=== PATIENT | female | born 1975 | race Caucasian/White ===

== ENCOUNTER → 2023-02-22 | Outpatient (CLI) | payer OTHER ==
--- NOTE | 2023-02-22 14:15 | CT ---
EXAMINATION TYPE: CT facial bones w con CT DLP: 550.8 mGycm, Automated exposure control for dose reduction was used. DATE OF EXAM: 02/22/2023 2:01 PM COMPARISON: None. CLINICAL INDICATION:Female, 47 years old with history of R22.1; PHH, left sided facial lump TECHNIQUE: Multiple axial CT images were obtained of the facial bones after the uneventful administra tion of 100 cc of Isovue 300 intravenously. Coronal, axial and sagittal reformatted images were also provided in soft tissue and bone windows and submitted for interpretation. FINDINGS: There is no evidence of fracture, subluxation, dislocation, or significant soft tissue swelling. The orbital contents are unremarkable. The temporal-mandibular joints appear symmetric. There is a hetero genous enhancing lesion within the superficial left parotid gland at site of palpable abnormality marisol suring 1.4 x 1.1 cm ((series 4, image 42). The vascular structures appear patent. Mildly prominent 7 cm short axis right level 2 lymph node (series 4, image 27). Submandibular glands appear symmetric an d unremarkable. Right parotid gland appears unremarkable. The oropharynx, oral cavity, parapharyngeal and retropharyngeal spaces are clear and symmetric. The nasopharynx is unremarkable. Complete opacification of the left frontal sinus with mild mucosal thickening of the anterior left et hmoid sinus. The remaining visualized portion of the paranasal sinuses appear clear. IMPRESSION: 1. Indeterminate heterogenous enhancing 1.4 x 1.1 cm lesion within the superficial aspect of the lef t parotid gland at site of palpable abnormality. Etiologies include salivary gland tumor such as a Wh arton's tumor or pleomorphic adenoma or mucosal epidermal carcinoma or adenoid cystic carcinoma versu s other etiologies. Further evaluation with ultrasound is recommended with consideration for biopsy. 2. Nonspecific prominent right level 2 lymph node. This can be further evaluated with ultrasound.
== END | disposition home or self-care (01) ==
LOC: RADCTMAIN 13:33
PROVIDERS: ATTEND Family Medicine
DX: R22.1 Localized swelling, mass and lump, neck (principal)
CPT/HCPCS: 70487; Q9967

== ENCOUNTER 2023-03-31 09:48 | Emergency (ER) | payer OTHER ==
[2023-03-31 09:56] VITALS: TEMP 98
--- NOTE | 2023-03-31 10:25 | ED ---
General Adult HPI - General Chief complaint: Chest Pain Stated complaint: Chest Pain,R Middle Finger Blue Time Seen by Provider: 03/31/23 10:02 Source: patient Mode of arrival: ambulatory Limitations: no limitations - History of Present Illness Initial comments: Dictation was produced using [employer] dictation software. please excuse any grammatical, word or spelling errors. Chief Complaint: 47-year-old female with alleged history of carpal tunnel syndrome presents to the ER for though chest ache and third digit on the right hand color changes History of Present Illness: Patient is a 47-year-old female she has no significant past medical history. She is a regular tobacco user. She does report some history of cardiac disease. States that over the last couple days she is noted cyanotic distal right third digit. She has carpal tunnel as affecting that hand as well. States that last night her finger. Blue tip only. Denies any history of renal disease. This morning she woke up with substernal chest ache. Nonradiating not associated with diaphoresis. Patient denies any cardiac history. Patient does report having active symptoms. Denies any shortness of breath. No lower extremity symptoms. No history of blood clot The ROS documented in this emergency department record has been reviewed and confirmed by me. Those systems with pertinent positive or negative responses have been documented in the HPI. All other systems are other negative and/or noncontributory. - Related Data Allergies Allergy/AdvReac Type Severity Reaction Status Date / Time cefaclor [From [facility]] Allergy Rash/Hives Verified 03/31/23 09:56 Review of Systems ROS Statement: Those systems with pertinent positive or pertinent negative responses have been documented in the HPI. ROS Other: All systems not noted in ROS Statement are negative. Past Medical History Past Medical History: No Reported History History of Any Multi-Drug Resistant Organisms: None Reported Past Surgical History: Tubal Ligation Past Psychological History: No Psychological Hx Reported Smoking Status: Current every day smoker Past Alcohol Use History: None Reported Past Drug Use History: None Reported General Exam - General Exam Comments Initial Comments: PHYSICAL EXAM: General Impression: Alert and oriented x3, not in acute distress HEENT: Normocephalic atraumatic, extra-ocular movements intact, pupils equal and reactive to light bilaterally, mucous membranes moist. Cardiovascular: Heart regular rate and rhythm Chest: Able to complete full sentences, no retractions, no tachypnea Abdomen: abdomen soft, non-tender, non-distended, no organomegaly Musculoskeletal: Pulses present and equal in all extremities, no peripheral edema Motor: no focal deficits noted Neurological: CN II-XII grossly intact, no focal motor or sensory deficits noted Skin: Intact with no visualized rashes Psych: Normal affect and mood Limitations: no limitations Course Vital Signs 03/31/23 03/31/23 09:52 11:23 Temperature 98 F Pulse Rate 107 H 86 Respiratory 18 18 Rate Blood Pressure 114/67 116/73 O2 Sat by Pulse 98 97 Oximetry EKG Findings - EKG Comments: EKG Findings:: My EKG interpretation: Ventricular rate 91, sinus rhythm, IL interval 137, QRS 84, QTC 396. No IL prolongation, no QTC prolongation, no ST or T-wave changes noted. Overall, this EKG is unremarkable Medical Decision Making - Medical Decision Making Was pt. sent in by a medical professional or institution (, PA, [facility]ER, urgent care, hospital, or skilled nursing...) When possible be specific @ -No Did you speak to anyone other than the patient for history (EMS, parent, family, police, friend...)? What history was obtained from this source @ -No Did you review nursing and triage notes (agree or disagree)? Why? @ -I reviewed and agree with nursing and triage notes Were old charts reviewed (outside hosp., previous admission, EMS record, old EKG, old radiological studies, urgent care reports/EKG's, skilled nursing records)? Report findings @ -No old charts were reviewed Differential Diagnosis (chest pain, altered mental status, abdominal pain women, abdominal pain men, vaginal bleeding, musculoskeletal, weakness, fever, dyspnea, syncope, headache, dizziness, GI bleed, back pain, seizure, CVA, palpatations, mental health)? @ -Differential Chest Pain: Stable Angina, Unstable Angina, STEMI, NSTEMI Aortic Dissection, Pneumothorax, Musculoskeletal, Esophageal Spasm GERD, Cholecystitis, Pancreatitis, Zoster, this is not meant to be an all-inclusive list. EKG interpreted by me (3pts min.). @ -see above X-rays interpreted by me (1pt min.). @ -Chest x-ray shows no acute processes CT interpreted by me (1pt min.). @ -None done U/S interpreted by me (1pt. min.). @ -None done What testing was considered but not performed or refused? (CT, X-rays, U/S, labs)? Why? @ -None What meds were considered but not given or refused? Why? @ -None Did you discuss the management of the patient with other professionals (professionals i.e. , PA, BR[facility] PICKER, lab, RT, psych nurse, socially responsible investment adviser, upsetter helper, teacher, air intelligence officer, rifle case repairer)? Give summary @ -No Was smoking cessation discussed for >3mins.? @ -No Was critical care preformed (if so, how long)? @ -No Were there social determinants of health that impacted care today? How? (Homelessness, low income, unemployed, alcoholism, drug addiction, transportation, low edu. Level, literacy, decrease access to med. care, nursing home, rehab)? @ -No Was there de-escalation of care discussed even if they declined (Discuss DNR or withdrawal of care, Hospice)? DNR status @ -No What co-morbidities impacted this encounter? (DM, HTN, Smoking, COPD, CAD, Cancer, CVA, ARF, Chemo, Hep., AIDS, mental health diagnosis, sleep apnea, morbid obesity)? @ -None Was patient admitted / discharged? Hospital course, mention meds given and route, prescriptions, significant lab abnormalities, going to OR and other pertinent info. @ -47 Year-old female presents to the emergency Department with a tubal chest pain typical features. Vital signs are stable. EKG shows no signs of ischemia or infarction. Laboratory evaluation is unremarkable. Troponin is negative. Patient reevaluated at bedside found to be in stable medical condition. Recommend exacerbation was made that she should be admitted observation for suture troponins and cardiac monitoring. Patient refused and preferred be discharged. Patient given aspirin. Return precautions discussed. Undiagnosed new problem with uncertain prognosis? @ -No Drug Therapy requiring intensive monitoring for toxicity (Heparin, Nitro, Insulin, Cardizem)? @ -No Were any procedures done? @ -No Diagnosis/symptom? Acute, or Chronic, or Acute on Chronic? Uncomplicated (wi thout systemic symptoms) or Complicated (systemic symptoms)? @ -Atypical chest pain typical features Side effects of treatment? @ -No Exacerbation, Progression, or Severe Exacerbation? @ -No Poses a threat to life or bodily function? How? (Chest pain, [place], [place], pneumonia, PE, COPD, DKA, ARF, appy, cholecystitis, CVA, Diverticulitis, Homicidal, Suicidal, threat to staff... and all critical care pts) @ -yes - Lab Data Result diagrams: 03/31/23 10:23 03/31/23 10:23 Lab Results 03/31/23 03/31/23 03/31/23 Range/Units 10:23 10: 10:23 WBC 9.9 (3.8-10.6) k/uL RBC 4.54 (3.80-5.40) m/uL Hgb 14.5 (11.4-16.0) gm/dL Hct 42.8 (34.0-46.0) % MCV 94.2 (80.0-100.0) fL MCH 31.9 (25.0-35.0) pg MCHC 33.8 (31.0-37.0) g/dL RDW 11.7 (11.5-15.5) % Plt Count 224 (150-450) k/uL MPV 8.7 Neutrophils % 74 % Lymphocytes % 17 % Monocytes % 6 % Eosinophils % 2 % Basophils % 0 % Neutrophils # 7.3 (1.3-7.7) k/uL Lymphocytes # 1.7 (1.0-4.8) k/uL Monocytes # 0.5 (0-1.0) k/uL Eosinophils # 0.2 (0-0.7) k/uL Basophils # 0.0 (0-0.2) k/uL PT 10.2 (9.0-12.0) sec INR 1.0 (<1.2) APTT 26.3 (22.0-30.0) sec Sodium 137 (137-145) mmol/L Potassium 4.0 (3.5-5.1) mmol/L Chloride 104 (98-107) mmol/L Carbon Dioxide 24 (22-30) mmol/L Anion Gap 9 mmol/L BUN 11 (7-17) mg/dL Creatinine 0.76 (0.52-1.04) mg/dL Est GFR (CKD-EPI)AfAm >90 (>60 ml/min/1.73 sqM) Est GFR (CKD-EPI)NonAf >90 (>60 ml/min/1.73 sqM) Glucose 121 H (74-99) mg/dL Calcium 8.7 (8.4-10.2) mg/dL Magnesium 2.0 (1.6-2.3) mg/dL Total Bilirubin 0.4 (0.2-1.3) mg/dL AST 23 (14-36) U/L ALT 28 (4-34) U/L Alkaline Phosphatase 71 (38-126) U/L Troponin I (0.000-0.034) ng/mL Total Protein 6.8 (6.3-8.2) g/dL Albumin 3.9 (3.5-5.0) g/dL 03/31/23 Range/Units 10:23 WBC (3.8-10.6) k/uL RBC (3.80-5.40) m/uL Hgb (11.4-16.0) gm/dL Hct (34.0-46.0) % MCV (80.0-100.0) fL MCH (25.0-35.0) pg MCHC (31.0-37.0) g/dL RDW (11.5-15.5) % Plt Count (150-450) k/uL MPV Neutrophils % % Lymphocytes % % Monocytes % % Eosinophils % % Basophils % % Neutrophils # (1.3-7.7) k/uL Lymphocytes # (1.0-4.8) k/uL Monocytes # (0-1.0) k/uL Eosinophils # (0-0.7) k/uL Basophils # (0-0.2) k/uL PT (9.0-12.0) sec INR (<1.2) APTT (22.0-30.0) sec Sodium (137-145) mmol/L Potassium (3.5-5.1) mmol/L Chloride (98-107) mmol/L Carbon Dioxide (22-30) mmol/L Anion Gap mmol/L BUN (7-17) mg/dL Creatinine (0.52-1.04) mg/dL Est GFR (CKD-EPI)AfAm (>60 ml/min/1.73 sqM) Est GFR (CKD-EPI)NonAf (>60 ml/min/1.73 sqM) Glucose (74-99) mg/dL Calcium (8.4-10.2) mg/dL Magnesium (1.6-2.3) mg/dL Total Bilirubin (0.2-1.3) mg/dL AST (14-36) U/L ALT (4-34) U/L Alkaline Phosphatase (38-126) U/L Troponin I <0.012 (0.000-0.034) ng/mL Total Protein (6.3-8.2) g/dL Albumin (3.5-5.0) g/dL Disposition Clinical Impression: Chest pain Disposition: HOME SELF-CARE Condition: Fair Instructions (If sedation given, give patient instructions): Chest Pain (ED) Is patient prescribed a controlled substance at d/c from ED?: No Referrals: Concha Cheng DO [Primary Care Provider] - 1-2 days Time of Disposition: 12:30
[2023-03-31 10:31] LABS: Basophils % (A) 0 %; Eosinophils # (A) 0.2 k/uL (0-0.7); Eosinophils % (A) 2 %; HCT 42.8 % (34.0-46.0); HGB 14.5 gm/dL (11.4-16.0); Lymphocytes # (A) 1.7 k/uL (1.0-4.8); Lymphocytes % (A) 17 %; MCH 31.9 pg (25.0-35.0); MCHC 33.8 g/dL (31.0-37.0); MCV 94.2 fL (80.0-100.0); Mean Platelet Volume 8.7; Monocytes # (A) 0.5 k/uL (0-1.0); Monocytes % (A) 6 %; Neutrophils # (A) 7.3 k/uL (1.3-7.7); Neutrophils % (A) 74 %; Platelet Count 224 k/uL (150-450); RBC 4.54 m/uL (3.80-5.40); RDW 11.7 % (11.5-15.5); WBC 9.9 k/uL (3.8-10.6)
[2023-03-31 10:41] LABS: Partial Thromboplastin Time 26.3 sec (22.0-30.0); Prothrombin Time 10.2 sec (9.0-12.0)
[2023-03-31 10:42] LABS: ALT 28 U/L (4-34); AST 23 U/L (14-36); African American GFR (CKD) >90 (>60 ml/min/1.73 sqM); Albumin 3.9 g/dL (3.5-5.0); Alkaline Phosphatase 71 U/L (38-126); Anion Gap 9 mmol/L; Blood Urea Nitrogen 11 mg/dL (7-17); Calcium 8.7 mg/dL (8.4-10.2); Carbon Dioxide 24 mmol/L (22-30); Chloride 104 mmol/L (98-107); Glucose 121 mg/dL (74-99); Non-African American GFR(CKD) >90 (>60 ml/min/1.73 sqM); Sodium 137 mmol/L (137-145); Total Bilirubin 0.4 mg/dL (0.2-1.3); Total Protein 6.8 g/dL (6.3-8.2)
--- NOTE | 2023-03-31 10:48 | XR ---
EXAMINATION TYPE: XR chest 2V DATE OF EXAM: 03/31/2023 10:34 AM COMPARISON: none TECHNIQUE: XR chest 2V Frontal and lateral views of the chest. CLINICAL INDICATION:Female, 47 years old with history of Chest Pain; FINDINGS: Lungs/Pleura: There is no evidence of pleural effusion, focal consolidation, or pneumothorax. Pulmonary vascularity: Unremarkable. Heart/mediastinum: Cardiomediastinal silhouette is unremarkable. Musculoskeletal: No acute osseous pathology. IMPRESSION: No acute cardiopulmonary disease/process.
[2023-03-31] MEDS ORDERED: ASPIRIN 81 MG PO STA (12:47)
[2023-03-31 13:26] VITALS: BP 128/87; PULSE 78; RESP 16
== END 2023-03-31 13:24 | disposition home or self-care (01) ==
LOC: EC 09:48
DX: R07.89 Other chest pain (principal); F17.200 Nicotine dependence, unspecified, uncomplicated; Z88.1 Allergy status to other antibiotic agents
CPT/HCPCS: 36415; 71046; 80053; 83735; 84484; 85025; 85610; 85730; 93005; 99285

== ENCOUNTER → 2023-04-27 | Outpatient (CLI) | payer OTHER ==
--- NOTE | 2023-04-27 10:22 | CA ---
Exercise Stress Test Report Name: Christie Pedro Exam Date: 04/27/2023 08:30 Exam Location: [place] Stress Ht (in): 65 Wt (lb): 176 BSA: 1.87 Ordering Phys: Concha Cheng DO Referring Phys: Jerri Corea [facility] Technologist: Damion Francis Age: 47 Gender: F : 1975 Procedure CPT: Indications: I20.9 R79.82 elevated crp ICD-10 Codes: Patient History: Medications: CELEBREX Meds past 24 hrs: Pretest Chest Pain: STRESS TEST Demetrio Protocol Exercise Duration (min:sec): 07:[address] Depressions (mm): Angina Score: Chisholm Score: Resting HR (bpm): 99 Peak HR (bpm): 174 Resting BP (mmHg): 99 / 68 Peak BP (mmHg): 186 / 87 MPHR: 171 Target HR: 145 % MPHR: 102 METS: 9.2 Total Dose: Peak Dose: Atropine: Double Product: 95459 BP Response: Stress Termination: Reached target heart rate Stress Symptoms: NO SYMPTOMS Stress Summary: ECG ANALYSIS Resting ECG: Stress ECG: CONCLUSIONS Baseline EKG revealed a normal sinus rhythm without significant ST-T changes. Patient walked on a standard Demetrio protocol for 7 minutes 13 seconds and achieved a maximum heart rate of 174 bpm which is more than 100% of predicted maximal. He did not have any angina. He delivered fatigue and shortness of breath. Resting blood pressure was 99/68 peak blood pressure was 186/87. No symptoms of angina. No significant arrhythmia and no ST segment changes to indicate ischemia. This is a negative stress test with limited exercise capacity Dr. Cecilia Carrero MD (Electronically Signed) Final Date: 27 April 2023 10:21
== END | disposition home or self-care (01) ==
LOC: RADNMMAIN 08:13
PROVIDERS: ATTEND Family Medicine
DX: I20.9 Angina pectoris, unspecified (principal); R79.82 Elevated C-reactive protein (CRP)
CPT/HCPCS: 93017

== ENCOUNTER → 2024-12-04 | Outpatient (CLI) | payer BC ==
--- NOTE | 2024-12-04 17:45 | CT ---
EXAMINATION TYPE: CT angio abd aorta w/Runoff DATE OF EXAM: 12/04/2024 5:00 PM COMPARISON: None. CLINICAL INDICATION: Female, 49 years old with history of I77.1 STRICTURE OF ARTERY, Pain in legs and difficulty walking., TECHNIQUE: Axial imaging was performed with sagittal coronal reformats. 3D reconstruction performed o n a separate workstation. CONTRAST: CTA thoracic and abdominal aorta with 3-D reconstruction is performed and with IV Contrast, patient i njected with 100 mL of Isovue 370. Contrast CTA of the abdominal aorta with runoff of the lower extremity arterial system was performed from the lung bases through the ankles and feet. 3-D reconstruction imaging obtained at a separate wo rkstation. CT DLP: 2018 mGycm, Automated exposure control for dose reduction was used. FINDINGS: ABDOMINAL AORTA: Nonaneurysmal atheromatous change of the abdominal aorta. Celiac and SMA vessels are patent as are the renal arteries bilaterally. There is a combination of soft plaque and calcific neris que distal abdominal aorta with luminal narrowing to 3.8 mm. Iliac vessels: Common iliac arteries are patent bilaterally. Internal and external iliac arteries are patent bilaterally as well without evidence for stenosis of greater than 50%. Femoral arteries: Femoral and superficial femoral arteries as well as profunda femoris arteries are p atent bilaterally. Popliteal arteries: Popliteal arteries are patent bilaterally with only mild plaque formation noted. Below the knee arteries: Trifurcation is patent bilaterally. Peroneal, anterior and posterior tibial arteries demonstrate no significant stenosis of greater than 50%. LIVER/GB-mild hepatic steatosis noted. PANCREAS- No significant abnormality is seen. SPLEEN- No significant abnormality is seen. ADRENALS- No significant abnormality is seen. KIDNEYS/BLADDER- No significant abnormality is seen. BOWEL- No Significant abnormality GENITAL ORGANS: No gross abnormality seen. LYMPH NODES- No greater than 1cm abdominal or pelvic lymph nodes are appreciated. OSSEOUS STRUCTURES- No significant abnormality is seen. OTHER- No significant abnormality is seen. IMPRESSION: 1. Luminal narrowing of the distal abdominal aorta with a lumen measuring only 3.8 mm. No additional hemodynamically significant stenosis appreciated. [facility], , 12/04/2024 5:42 PM
== END | disposition home or self-care (01) ==
LOC: RADCTMAIN 14:56
PROVIDERS: ATTEND Surgery Vascular Surgery
DX: I77.1 Stricture of artery (principal); Q25.1 Coarctation of aorta
CPT/HCPCS: 75635; Q9967